=== PATIENT | male | born 1990 | race Caucasian/White ===

== ENCOUNTER 2023-09-16 11:17 | Emergency (ER) | payer MEDICAID ==
[~2023-09-16] VITALS: Ht 175.3 cm; Wt 90.0 kg
[2023-09-16 11:28] VITALS: O2SAT 100
[2023-09-16] MEDS ORDERED: NA P230E RC (12:20)
[2023-09-16] MEDS ORDERED: MAGN296S70 MT (12:20)
[2023-09-16] MEDS: KETOROLAC 30MG/ML VIAL IM ONE (12:30)
[2023-09-16 12:51] VITALS: BP 121/74; PULSE 76; RESP 18; TEMP 98.7
== END 2023-09-16 13:11 | disposition home or self-care (01) ==
LOC: ER 11:17
DX: R19.7 Diarrhea, unspecified (principal)
CPT/HCPCS: 99283; 96372; J1885

== ENCOUNTER 2024-04-21 15:37 | Emergency (ER) | payer MEDICAID, OTHER ==
[~2024-04-21] VITALS: Ht 172.7 cm; Wt 107.0 kg
[~2024-04-21 15:37] MED LIST: MAGN296S70 MT; NA P230E RC
[2024-04-21 16:10] VITALS: TEMP 98.4; O2SAT 98
[2024-04-21] MEDS ORDERED: KETOROLAC 15MG/ML VIAL IM ONE (18:30)
[2024-04-21 22:27] LABS: CLARITY URINE CLEAR (CLEAR); COLOR URINE DARK YELLOW (YELLOW); GLUCOSE URINE NEGATIVE (NEGATIVE); KETONES URINE 2+ (NEGATIVE); LEUKOCYTE ESTERASE URINE NEGATIVE (NEGATIVE); NITRITE URINE NEGATIVE (NEGATIVE); OCCULT BLOOD URINE NEGATIVE (NEGATIVE); PROTEIN URINE TRACE (NEGATIVE); SPECIFIC GRAVITY URINE 1.024 (1.005-1.030)
[2024-04-21 22:51] LABS: BACTERIA URINE NONE SEEN; RBC URINE NONE SEEN /hpf (0-2); SQUAMOUS EPITHELIAL CELL URINE RARE /lpf (RARE/1+); WBC URINE 0-2 /hpf (0-2)
[2024-04-21 23:40] LABS: CHLORIDE 102 mEq/L (98-107); POTASSIUM 4.1 mEq/L (3.5-5.1); SODIUM 138 mEq/L (136-145)
[2024-04-21 23:41] LABS: CARBON DIOXIDE 29 mEq/L (21-32)
[2024-04-21 23:42] LABS: CALCIUM 10.2 mg/dL (8.7-10.4)
[2024-04-21 23:46] LABS: CREATININE 0.9 mg/dL (0.6-1.3); GLUCOSE 85 mg/dL (70-105)
[2024-04-21 23:47] LABS: UREA NITROGEN BLOOD 10 mg/dL (9-23)
[2024-04-21 23:48] LABS: ALANINE AMINOTRANSFERASE 28 IU/L (10-49); ALBUMIN 5.1 g/dL (3.2-4.8); ASPARTATE AMINOTRANSFERASE 23 IU/L (<34)
[2024-04-21 23:49] LABS: BILIRUBIN TOTAL 0.9 mg/dL (0.1-1.0); PROTEIN TOTAL 7.9 g/dL (6.0-8.3)
[2024-04-22] LABS: BASOPHILS % 0.4 % (0.0-2.0); EOSINOPHILS % 0.9 % (0.0-5.0); HEMATOCRIT. 47.4 % (42.0-52.0); HEMOGLOBIN. 16.2 g/dL (14.0-18.0); MEAN CORPUSCULAR HEMOGLOBIN 28.8 pg (28.0-32.0); MEAN CORPUSCULAR HGB CONC 34.1 g/dL (31.0-37.0); MEAN CORPUSCULAR VOLUME 84.5 fL (80.0-94.0); MEAN PLATELET VOLUME 8.9 fl (7.4-10.4); MONOCYTES % 6.2 % (2.0-8.0); NEUTROPHILS % 60.5 % (40.0-76.0); PLATELET 229 x1000/uL (130-400); RED BLOOD CELL COUNT 5.61 mill/uL (4.7-6.1); RED CELL DISTRIBUTION WIDTH 14.8 % (11.6-14.6); WHITE BLOOD COUNT 10.5 x1000/uL (4.5-11.0)
[2024-04-22 00:05] LABS: TROPONIN I HIGH SENSITIVITY < 4 ng/L (3.0-53)
[2024-04-22 01:33] VITALS: BP 137/90; PULSE 85; RESP 16
[2024-04-22] MEDS: KETOROLAC 15MG/ML VIAL IM NR (01:33)
== END 2024-04-22 01:39 | disposition home or self-care (01) ==
LOC: ER 15:37
DX: R07.89 Other chest pain (principal); Z87.442 Personal history of urinary calculi
CPT/HCPCS: 99285; 74176; 80053; 81003; 83690; 85025; 84484; 36415; 93005; 96372; J1885